=== PATIENT | female | born 1985 | race Caucasian/White ===

== ENCOUNTER 2016-07-12 12:04 | Emergency (ER) | payer OTHER ==
[2016-07-12] MEDS ORDERED: Benzonatate 100 MG CAP ONE (13:13)
[2016-07-12] MEDS ORDERED: predniSONE 20 MG TAB ONE (13:13)
[2016-07-12] MEDS ORDERED: Cephalexin 500 MG CAP ONE (13:13)
--- NOTE | 2016-07-12 13:43 | PICIS ---
[facility] EMERGENCY RECORD TRIAGE (MonJul 12, 2016 12:17 SFRE) PATIENT: NAME: Danna Phan, AGE: 30, GENDER: female, : Mon1985, TIME OF GREET: MonJul 12, 2016 12:04, PREFERRED LANGUAGE: Dominican, RACE: WHITE, ETHNICITY: Not or , FALL RISK: NO, ECODE BILLING MAP: [facility], SSN: [id number], Zip Code: [address], KG WEIGHT: 73.48, PHONE: CELL, , , PERSON ID: [id number], PCP: NO PCP. (MonJul 12, 2016 12:17 SFRE) TRIAGE NOTES: CONGESTION, COUGH, FRONTAL PRESSURE BEHIND EYES. (MonJul 12, 2016 12:17 SFRE) COMPLAINT: FLU LIKE SYM. (MonJul 12, 2016 12:17 SFRE) ADMISSION: URGENCY: 3 Urgent, ADMISSION SOURCE: Home, TRANSPORT: Walk-in, BED: TRIAGE. (MonJul 12, 2016 12:17 SFRE) PAIN: Notes: PLEURETIC WITH COUGH. (MonJul 12, 2016 12:17 SFRE) IMMUNIZATIONS: Tetanus immunization up to date. (MonJul 12, 2016 12:17 SFRE) TRIAGE SCREENING: Patient denies suicidal ideation, Patient denies presence of domestic violence. (MonJul 12, 2016 12:17 SFRE) PROVIDERS: TRIAGE NURSE: Debbie Mcdermott RN. (MonJul 12, 2016 12:17 SFRE) VITAL SIGNS: BP 137/83, Pulse 86, Resp 20, Temp 98.6, (Tympanic), Pain 0, O2 Sat 100, on Room Air, Time 07/12/2016 12:14. (12:14 SFRE) PREVIOUS VISIT ALLERGIES: bee venom (honey bee), Coconut, No Known Drug Allergies. (MonJul 12, 2016 12:17 SFRE) KNOWN ALLERGIES bee venom (honey bee) Coconut: Reaction: SWELLING No Known Drug Allergies (Unconfirmed) venom-honey bee (Unconfirmed) CURRENT MEDICATIONS No recorded medications VITAL SIGNS (12:14 SFRE) VITAL SIGNS: BP: 137/83, Pulse: 86, Resp: 20, Temp: 98.6 (Tympanic), Pain: 0, O2 sat: 100 on Room Air, Time: 07/12/2016 12:14. NURSING ASSESSMENT: RESPIRATORY /CHEST (12:17 MDEB) CONSTITUTIONAL: Patient arrives ambulatory, Gait steady, History obtained from patient, Patient appears, anxious, generally ill, uncomfortable, Patient cooperative, Patient alert, Oriented to person, place and time, Skin warm, Skin dry, Skin normal in color, Mucous membranes pink, Mucous membranes moist, Patient is well-groomed, Patient complains of COUGH, SINUS PRESSURE, CONGESTION. PAIN: PLEURETIC PAIN ONLY WITH COUGH, PAIN TO RIBS ET STOAMCH MUSCLES. &a-1R&a+25V*p+0X*b2035W*c202B*c15G*c2P*p-0X&a-25V&a+1R Name: Danna Phan : 1985 F30 MedRec: [id number] AcctNum: [id number] Prepared: Sondra Jul 12, 2016 13:58 by Interface Page 1 of 7 pMD [facility] EMERGENCY RECORD RESPIRATORY/CHEST: Breath sounds clear, Respiratory assessment findings include respiratory effort easy, Respirations regular, Conversing normally, Neck and chest exam findings include trachea midline, Chest expansion equal, Chest movement symmetrical, Associated with cough, dry. ENT: Ear assessment findings include ear normal to inspection, Congestion, bilaterally, Mouth and throat assessment findings include mouth inspection normal, Mucous membranes pink, and moist, Able to swallow, Speech normal, Associated with headache, FRONTAL PRESSURE. NOTES: Emotional support needed and given, Patient tolerated procedure well. SAFETY: Side rails up, Cart/Stretcher in lowest position, Family at bedside, Call light within reach, Hospital ID band on. NURSING PROCEDURE: DISCHARGE NOTE (13:20 MDEB) DISCHARGE: Patient discharged to home, ambulating without assistance, driving self, unaccompanied, Summary of Care printed/ provided, Patient requested and was provided an electronic copy of Discharge Instructions, Transition record given to patient, Discharge instructions given to patient, Prescriptions given and instructions on side effects given, Above person(s) verbalized understanding of discharge instructions and follow-up care, Patient treated and evaluated by physician. BELONGINGS: Belongings remain with patient, Valuables remain with patient. NOTES: Emotional support needed and given, Patient tolerated procedure well. MEDICATION ADMINISTRATION SUMMARY Drug Name: amoxicillin, Dose Ordered: 500 mg, Route: Oral, Status: Given, Time: 13:24 07/12/2016, Drug Name: Marcia Degroot, Dose Ordered: 200 mg, Route: Oral, Status: Given, Time: 13:20 07/12/2016, Drug Name: predniSONE oral, Dose Ordered: 60 mg, Route: Oral, Status: Given, Time: 13:20 07/12/2016, Detailed record available in Medication Service section. MEDICATION SERVICE amoxicillin: Order: amoxicillin (amoxicillin trihydrate) - Dose: 500 mg : Oral Schedule: Now Ordered by: Catracho Reynoso MD Entered by: Catracho Reynoso MD MonJul 12, 2016 13:04 , Acknowledged by: Jessica Whitfield RN Jul 12, 2016 13:11 Documented as given by: Jessiac Whitfield RN Jul 12, 2016 13:24 Patient, Medication, Dose, Route and Time verified prior to administration. Amount given: 500 MG, Site: Medication administered P.O., Correct &a-1R&a+25V*p+0X*c4315K*c202B*c15G*c2P*p-0X&a-25V&a+1R Name: Danna Phan : 1985 F30 MedRec: [id number] AcctNum: [id number] Prepared: MonJul 12, 2016 13:58 by Interface Page 2 of 7 pMD [facility] EMERGENCY RECORD patient, time, route, dose and medication confirmed prior to administration, Patient advised of actions and side-effects prior to administration, Allergies confirmed and medications reviewed prior to administration, Patient in position of comfort, Side rails up, Cart in lowest position, Family at bedside. predniSONE oral: Order: predniSONE oral (prednisone) - Dose: 60 mg : Oral Schedule: Now Ordered by: Catracho Reynoso MD Entered by: Catracho Reynoso MD MonJul 12, 2016 13:05 , Acknowledged by: Jessica Whitfield RN Jul 12, 2016 13:11 Documented as given by: Jessica Whitfield RN Jul 12, 2016 13:20 Patient, Medication, Dose, Route and Time verified prior to administration. Amount given: 60 MG, Site: Medication administered P.O., Correct patient, time, route, dose and medication confirmed prior to administration, Patient advised of actions and side-effects prior to administration, Allergies confirmed and medications reviewed prior to administration, Patient in position of comfort, Side rails up, Cart in lowest position, Family at bedside. Tessalon Perles: Order: Tessalon Perles (benzonatate) - Dose: 200 mg : Oral Schedule: Now Ordered by: Catracho Reynoso MD Entered by: Catracho Reynoso MD MonJul 12, 2016 13:04 , Acknowledged by: Jessica Whitfield RN MonJul 12, 2016 13:11 Documented as given by: Jessica Whitfield RN MonJul 12, 2016 13:20 Patient, Medication, Dose, Route and Time verified prior to administration. Amount given: 200 MG, Site: Medication administered P.O., Correct patient, time, route, dose and medication confirmed prior to administration, Patient advised of actions and side-effects prior to administration, Allergies confirmed and medications reviewed prior to administration, Patient in position of comfort, Side rails up, Cart in lowest position, Family at bedside. HPI COUGH (13:25 LLDO) CHIEF COMPLAINT: Patient presents for evaluation of cough, productive of yellow sputum. HISTORIAN: History provided by patient, History provided by patient's family, MOM. LOCATION: Symptoms are generalized. QUALITY: Denies tightness, Denies wheezing, Pain is dull in nature, described as aching. SEVERITY: Maximum severity of symptoms moderate, Currently symptoms are moderate. TIME COURSE: Gradual onset of symptoms, Symptoms are worsening, are constant. ASSOCIATED WITH: Associated symptoms reviewed, Associated with dyspnea on exertion, Associated with fever, Associated with upper respiratory infection, No associated wheezing, Associated &a-1R&a+25V*p+0X*h0135Y*c202B*c15G*c2P*p-0X&a-25V&a+1R Name: Danna Phan : 1985 F30 MedRec: [id number] AcctNum: [id number] Prepared: MonJul 12, 2016 13:58 by Interface Page 3 of 7 pMD [facility] EMERGENCY RECORD with weakness. EXACERBATED BY: Patient's condition exacerbated by deep breaths, Patient's condition exacerbated by exercise, Patient's condition exacerbated by lying flat. RELIEVED BY: Patient's condition relieved by nothing, Patient's condition relieved by rest. ROS CONSTITUTIONAL: Historian reports fatigue, reports fever, reports malaise. (13:35 LLDO) EYES: Negative eye review of systems, Historian denies eye pain, denies eye redness, denies eye discharge. (13:47 LLDO) ENT: Historian reports sinus pain, reports sore throat. (13:35 LLDO) CARDIOVASCULAR: Historian reports dyspnea on exertion. (13:35 LLDO) RESPIRATORY: Historian reports cough, reports sputum. described as thick, green, Historian denies wheezing, yellow. (13:35 LLDO) GI: Negative gastrointestinal review of systems, Historian denies abdominal pain, denies constipation, denies diarrhea, denies nausea, denies vomiting. (13:47 LLDO) GENITOURINARY FEMALE: Negative genitourinary review of systems, Historian denies dysuria, denies frequency, denies urgency. (13:47 LLDO) MUSCULOSKELETAL: Historian reports myalgias. (13:35 LLDO) SKIN: Negative skin review of systems, Historian denies cellulitis, denies rash, denies skin changes, denies skin lesions. (13:47 LLDO) NEUROLOGIC: Historian denies confusion, denies dizziness, denies dysphasia, denies focal weakness, denies gait changes, reports headache, denies irritability, denies lethargy, denies mental status changes. (13:35 LLDO) HEMO/LYMPHATIC: Normal hematologic/lymphatic system review, Historian denies abnormal blood clotting, denies gum bleeding, denies petechiae. (13:47 LLDO) ALLERGIC/IMMUNOLOGIC: Normal allergy/immunologic system review, Historian denies eczema, denies environmental allergies, denies food allergies. (13:47 LLDO) PSYCHIATRIC: Negative psychiatric review of systems, Historian denies alcohol abuse, denies anxiety, denies depression, denies drug abuse, denies hallucinations. (13:47 LLDO) NOTES: All systems reviewed, negative except as described above. (13:35 LLDO) PAST MEDICAL HISTORY MEDICAL HISTORY: Flu vaccine up to date, Tetanus immunization up to date, Past medical history includes endocrine disease, hypothyroidism, Past medical history includes history of hypertension. (MonJul 12, 2016 12:17 SFRE) &a-1R&a+25V*p+0X*b6021O*c202B*c15G*c2P*p-0X&a-25V&a+1R Name: Danna Phan : 1985 F30 MedRec: [id number] AcctNum: [id number] Prepared: MonJul 12, 2016 13:58 by Interface Page 4 of 7 pMD [facility] EMERGENCY RECORD FEMALE SURGICAL HISTORY: Patient's surgical history is not relevant to the management of the case. (MonJul 12, 2016 12:17 SFRE) PSYCHIATRIC HISTORY: Psychiatric history includes, anxiety, depression. (MonJul 12, 2016 12:17 SFRE) SOCIAL HISTORY: Patient currently uses tobacco, smokes cigarettes, daily, Patient smokes 1 pack per day, Patient currently uses tobacco, smokes cigarettes, daily, Patient smokes 1 pack per day, Patient denies alcohol use, Patient denies drug use, Patient currently uses tobacco. (MonJul 12, 2016 12:17 SFRE) FAMILY HISTORY: Notes: Father had MT at age 27, Paternal history of cardiac disease:, myocardial infarction. (MonJul 12, 2016 12:17 SFRE) NOTES: Nursing records reviewed, Agree with nursing records, Medication list reviewed. (13:46 LLDO) PHYSICAL EXAM CONSTITUTIONAL: Vital Signs Reviewed, Patient afebrile, Pulse normal, Blood pressure normal, Respiratory rate normal, Normal pulse oximetry, Patient appears, uncomfortable, Patient appears, in mild pain distress, Patient alert and oriented to person, place and time, Nursing notes reviewed. (13:39 LLDO) HEAD: Head exam normal, Head exam included findings of head atraumatic, normocephalic. (13:47 LLDO) EYES: Eye exam normal, Eye exam included findings of eyelids normal to inspection, Pupils equally round and reactive to light, Extraocular muscles intact. (13:47 LLDO) ENT: Pharynx, injected bilaterally, with swelling bilaterally, Uvula exam normal, Sinus exam included findings of frontal sinuses with, tenderness bilaterally, Maxillary sinuses with, tenderness bilaterally. (13:39 LLDO) NECK: Neck exam normal, Neck exam included findings of normal range of motion, Trachea midline, no meningeal signs, no tenderness. (13:47 LLDO) RESPIRATORY CHEST: Respiratory exam included findings of no respiratory distress, No wheezing, Rales present, Chest exam included findings of chest movement symmetrical, Chest expansion equal, RALES MOD AND SCATTERED. (13:39 LLDO) CARDIOVASCULAR: Cardiovascular assessment normal, Cardiovascular exam included findings of heart rate regular rate and rhythm, Heart sounds normal. (13:47 LLDO) ABDOMEN FEMALE: Abdominal exam normal, Abdominal exam included findings of abdomen nontender, Bowel sounds normal, no peritoneal signs. (13:47 LLDO) BACK: Back exam normal, Back exam included findings of normal inspection, range of motion normal. (13:47 LLDO) UPPER EXTREMITY: Upper extremity exam normal, Upper extremity &a-1R&a+25V*p+0X*f6005H*c202B*c15G*c2P*p-0X&a-25V&a+1R Name: Danna Phan : 1985 F30 MedRec: [id number] AcctNum: [id number] Prepared: MonJul 12, 2016 13:58 by Interface Page 5 of 7 pMD [facility] EMERGENCY RECORD exam included findings of inspection normal, Range of motion normal. (13:47 LLDO) LOWER EXTREMITY: Lower extremity exam normal, Lower extremity exam included findings of inspection normal, Range of motion normal. (13:47 LLDO) NEURO: Neuro exam normal, Neuro exam findings include patient oriented to person, place and time, Speech normal, Sharon coma scale 15. (13:47 LLDO) SKIN: Skin exam normal, Skin exam included findings of skin warm, dry, and normal in color, no rash. (13:47 LLDO) PSYCHIATRIC: Psychiatric exam normal, Psychiatric exam included findings of patient oriented to person place and time, Normal affect. (13:47 LLDO) EVENTS TRANSFER: Triage to Emergency Triage. (MonJul 12, 2016 12:17 SFRE) Emergency Triage to Main ED -03. (12:17 SFRE) Removed from Emergency Main ED -03. (13:30 MDEB) PROBLEM LIST No recorded problems DIAGNOSIS (13:06 LLDO) FINAL: PRIMARY: Acute bronchitis. DISPOSITION PATIENT: Disposition Type: Discharge, Disposition: *Discharge Home. (13:06 LLDO) Patient left the department. (13:30 JENIFER) INSTRUCTION (13:08 DO) DISCHARGE: BRONCHITIS, ABX TX (ADULT). FOLLOWUP: Follow up with Primary Care Physician in 7-10 days. SPECIAL: Follow-up with your PCP. PRESCRIPTION (13:07 DO) amoxicillin: CAPSULE (HARD, SOFT, ETC.) : 500 mg : ORAL : Quantity: 1 Unit: cap(s) Route: ORAL Schedule: 3 times a day Dispense: 30 May substitute. Refills: No Refills . NOTES: No Refills. Phenergan DM: SYRUP : : ORAL : Quantity: 1-2 Unit: teaspoon Route: ORAL Schedule: every 4 hours prn Dispense: 180 Unit: mL May substitute. Refills: No Refills . NOTES: ^s=No Refills No Refills. predniSONE oral: TABLET : 20 mg : ORAL : Quantity: * Unit: Route: ORAL Schedule: See Notes Dispense: 2O &a-1R&a+25V*p+0X*d9582R*c202B*c15G*c2P*p-0X&a-25V&a+1R Name: Danna Phan : 1985 F30 MedRec: [id number] AcctNum: [id number] Prepared: Sondra Jul 12, 2016 13:58 by Interface Page 6 of 7 pMD [facility] EMERGENCY RECORD May substitute. Refills: No Refills . NOTES: 3 TABS PER DAY FOR 3 DAYS, THEN 2 TABS PER DAY FOR 3 DAYS, THEN ONE TAB PER DAY UNTIL GONE No Refills. Ultram: TABLET : 50 mg : ORAL : Quantity: 1-2 Unit: tab(s) Route: ORAL Schedule: every 4 hours prn Dispense: 24 May substitute. Refills: No Refills . NOTES: No Refills. IMAGING (13:26 [facility]) *DISCHARGE INSTRUCTIONS RECEIPT: Image captured from scanner. *SUPPLY CHARGE SHEET: Image captured from scanner. ADMIN (13:48 LLDO) DIGITAL SIGNATURE: MD Angeles, Catracho. Montes De Oca: SILVIA=MD Reynoso Lloyd MDEB=MOOK Whitfield, Jessica RIDLEYE=MOOK Mcdermott, Debbie &a-1R&a+25V*p+0X*b4283C*c202B*c15G*c2P*p-0X&a-25V&a+1R Name: Danna Phan : 1985 F30 MedRec: [id number] AcctNum: [id number] Prepared: MonJul 12, 2016 13:58 by Interface Page 7 of 7 pMD [facility] MEDICATION RECONCILIATION You were seen in the Emergency Department on: MonJul 12, 2016 KNOWN ALLERGIES bee venom (honey bee) Coconut: Reaction: SWELLING No Known Drug Allergies (Unconfirmed) venom-honey bee (Unconfirmed) MEDICATIONS GIVEN WHILE IN THE EMERGENCY DEPARTMENT amoxicillin (amoxicillin trihydrate) - Dose: 500 milligram(s) : Oral Tessalon Perles (benzonatate) - Dose: 200 milligram(s) : Oral predniSONE oral (prednisone) - Dose: 60 milligram(s) : Oral Notes from the emergency department Reviewed with family Reviewed with patient PRESCRIPTIONS (4) Printed (4) amoxicillin : CAPSULE (HARD, SOFT, ETC.) : 500 mg : ORAL Quantity: 1, Unit: cap(s), Route: ORAL, Schedule: 3 times a day, Dispense: 30 Phenergan DM : SYRUP : : ORAL Quantity: 1-2, Unit: teaspoon, Route: ORAL, Schedule: every 4 hours prn, Dispense: 180 Unit: milliliter(s) predniSONE oral : TABLET : 20 mg : ORAL Quantity: *, Unit: *, Route: ORAL, Schedule: See Notes, Dispense: 2O &a-1R&a+25V*p+0X*w0437M*c202B*c15G*c2P*p-0X&a-25V&a+1R Name: Danna Phan : 1985 F30 MedRec: [id number] AcctNum: [id number] Prepared: MonJul 12, 2016 13:58 by Interface pMEmily JOHNSON
== END 2016-07-12 13:20 | disposition home or self-care (01) ==
LOC: MADERS 12:04
DX: J20.9 Acute bronchitis, unspecified (principal); I10 Essential (primary) hypertension; E03.9 Hypothyroidism, unspecified; F32.9 Major depressive disorder, single episode, unspecified; F41.9 Anxiety disorder, unspecified; F17.210 Nicotine dependence, cigarettes, uncomplicated
CPT/HCPCS: 99283; J7506

== ENCOUNTER 2016-10-04 18:03 | Emergency (ER) | payer MEDICAID, OTHER, SELFPAY ==
[2016-10-04] MEDS ORDERED: Azithromycin 250 MG TAB ONE (18:31)
[2016-10-04] MEDS ORDERED: predniSONE 20 MG TAB ONE (18:31)
== END 2016-10-04 18:35 | disposition home or self-care (01) ==
LOC: MADERS 18:03
DX: J40 Bronchitis, not specified as acute or chronic (principal); E03.9 Hypothyroidism, unspecified; I10 Essential (primary) hypertension; F41.9 Anxiety disorder, unspecified; F32.9 Major depressive disorder, single episode, unspecified; F17.210 Nicotine dependence, cigarettes, uncomplicated
CPT/HCPCS: 99283; J7506

== ENCOUNTER 2017-03-29 13:32 | Emergency (ER) | payer MEDICAID ==
[2017-03-29 15:01] LABS: Bilirubin Negative (Negative); Blood, Urine Negative (Negative); Glucose, Urine (Dipstick) Negative (Negative); Leukocyte Negative (Negative); Nitrite Negative (Negative); Protein, Urine (Dipstick) Negative (Neg-Trace); Urobilinogen 0.2 mg/dL (0.2-1.0)
[2017-03-29 15:07] LABS: Pregnancy Test - Urine (BHCG) Negative (Negative); Pregu Control Background? CLEAR/WHITE (CLR/WHITE); Pregu Control Bar Appear? YES (CONTROL BAR)
[2017-03-29 15:15] LABS: Clarity Slightly Cloudy (Clear)
== END 2017-03-29 15:45 | disposition home or self-care (01) ==
LOC: MADERS 13:32
DX: I10 Essential (primary) hypertension (principal); B34.9 Viral infection, unspecified; E03.9 Hypothyroidism, unspecified; F41.9 Anxiety disorder, unspecified; F32.9 Major depressive disorder, single episode, unspecified; F17.210 Nicotine dependence, cigarettes, uncomplicated; Z79.899 Other long term (current) drug therapy
CPT/HCPCS: 36416; 81003; 81025; 99283

== ENCOUNTER 2017-04-13 19:54 | Emergency (ER) | payer MEDICAID, SELFPAY ==
[2017-04-13] MEDS ORDERED: Ondansetron ODT 4 MG TAB ONE (20:18)
--- NOTE | 2017-04-13 20:49 | CT ---
NONCONTRAST CT OF THE BRAIN 04/13/17 INDICATION: Wooden beam fell on top of head 30 minutes ago with no loss of consciousness but with head pain. COMPARISON: None. FINDINGS: Septum pellucidum and third ventricle are midline. No acute infarct, hemorrhage or hydrocephalus is present. The skull and extracranial soft tissues are within normal limits. IMPRESSION: No acute intracranial abnormality. POS: [facility]
[2017-04-13] MEDS ORDERED: diphenhydrAMINE 25 MG CAP ONE (20:51)
[2017-04-13] MEDS ORDERED: HYDROcodone/Acetaminophen 5/325 mg Tablet ONE (20:51)
[2017-04-13] MEDS ORDERED: Metoclopramide HCl 10 MG TAB ONE (20:51)
== END 2017-04-13 21:02 | disposition home or self-care (01) ==
LOC: MADERS 19:54
DX: S00.03XA Contusion of scalp, initial encounter (principal); E03.9 Hypothyroidism, unspecified; I10 Essential (primary) hypertension; F41.9 Anxiety disorder, unspecified; F32.9 Major depressive disorder, single episode, unspecified; F17.210 Nicotine dependence, cigarettes, uncomplicated; Z79.899 Other long term (current) drug therapy; W22.8XXA Striking against or struck by other objects, initial encounter; Y92.009 Unspecified place in unspecified non-institutional (private) residence as the place of occurrence of the external cause
CPT/HCPCS: 70450; Q0162

== ENCOUNTER 2017-07-02 11:55 | Emergency (ER) | payer MEDICAID ==
[2017-07-02] MEDS ORDERED: Phenergan/Codeine 10-6.25mg/5ml UDCUP ONE (13:17)
[2017-07-02] MEDS ORDERED: AMOXicillin 250 MG CAP ONE (13:17)
[2017-07-02] MEDS ORDERED: Tobramycin Sulfate 0.3% Ophth Susp 5 ml Bottle ONE (13:17)
== END 2017-07-02 13:35 | disposition home or self-care (01) ==
LOC: MADERS 11:55
DX: H10.9 Unspecified conjunctivitis (principal); J20.9 Acute bronchitis, unspecified; E03.9 Hypothyroidism, unspecified; I10 Essential (primary) hypertension; F41.9 Anxiety disorder, unspecified; F32.9 Major depressive disorder, single episode, unspecified; F17.210 Nicotine dependence, cigarettes, uncomplicated; Z79.899 Other long term (current) drug therapy
CPT/HCPCS: 99283

== ENCOUNTER 2017-07-22 19:06 | Emergency (ER) | payer MEDICAID | END 2017-07-22 20:30 | disposition left against medical advice (07) | LOC: MADERS 19:06 | DX: Z53.21 Procedure and treatment not carried out due to patient leaving prior to being seen by health care provider (principal) ==

== ENCOUNTER 2019-02-05 09:09 | Emergency (ER) | payer OTHER, SELFPAY ==
[2019-02-05] MEDS ORDERED: Lidocaine 1% w/Epinephrine 1:100K 20 ML VIAL ONE (09:24)
[2019-02-05] MEDS ORDERED: Rabies Vaccine Human 2.5 UNITS VIAL ONE (09:47)
[2019-02-05] MEDS ORDERED: Adacel (T-DAP) 0.5 ML SYRINGE ONE (09:54)
== END 2019-02-05 10:05 | disposition home or self-care (01) ==
LOC: MADERS 09:09
DX: L02.01 Cutaneous abscess of face (principal); E03.9 Hypothyroidism, unspecified; I10 Essential (primary) hypertension; F41.9 Anxiety disorder, unspecified; F32.9 Major depressive disorder, single episode, unspecified; F17.210 Nicotine dependence, cigarettes, uncomplicated; Z79.899 Other long term (current) drug therapy
CPT/HCPCS: 10060; 90471; 90675; 90715; J2001

== ENCOUNTER 2019-06-14 13:58 | Emergency (ER) | payer MEDICAID, SELFPAY ==
--- NOTE | 2019-06-14 15:20 | RAD ---
XR Ankle Rt 3 View STANDARD HISTORY: Injury, right ankle pain FINDINGS: No fracture or dislocation is identified. The ankle mortise is maintained.
[2019-06-14] MEDS ORDERED: Ibuprofen 800 MG TAB ONE (16:01)
[2019-06-14] MEDS ORDERED: traMADol HCl 50 MG TAB ONE (16:01)
== END 2019-06-14 16:13 | disposition home or self-care (01) ==
LOC: MADERS 13:58
DX: S93.491A Sprain of other ligament of right ankle, initial encounter (principal); E03.9 Hypothyroidism, unspecified; I10 Essential (primary) hypertension; F41.9 Anxiety disorder, unspecified; F32.9 Major depressive disorder, single episode, unspecified; F17.210 Nicotine dependence, cigarettes, uncomplicated; W18.30XA Fall on same level, unspecified, initial encounter

== ENCOUNTER 2019-06-15 02:29 | Emergency (ER) | payer SELFPAY ==
[2019-06-15] MEDS ORDERED: Morphine 4 MG/ML VIAL ONE (02:49)
[2019-06-15 03:36] LABS: #Basophils 0.1 thou/uL (0.0-0.2); #Eosinphils 0.3 thou/uL (0.0-0.7); #Lymphocytes 3.6 thou/uL (1.20-3.40); #Monocytes 0.6 thou/uL (0.11-0.59); %Eosinophils 2.2 % (0.0-10.0); %Lymphocytes 28.4 % (21.0-51.0); %Monocytes 4.9 % (0.0-10.0); %Neutrophils 63.5 % (42.0-75.0); Hemoglobin 14.3 g/dL (12.0-16.0); Mean Corpuscular HGB CONC 31.3 g/dL (32.0-36.0); Mean Corpuscular Hemoglobin 28.3 pg (27.0-31.0); Mean Corpuscular Volume 90.5 fL (78.0-98.0); Mean Platelet Volume 7.7 fL (7.4-10.4); Platelet Count 232 thou/uL (130-400); RBC Distribution Width 12.6 % (11.5-14.5); Red Blood Cell (RBC) Count 5.07 mill/uL (4.20-5.40); White Blood Cell (WBC) Count 12.5 thou/uL (4.8-10.8)
[2019-06-15 03:52] LABS: ALT (SGPT) 14 U/L (8-55); AST (SGOT) 14 U/L (5-34); Albumin 4.1 g/dL (3.5-5.0); Alkaline Phosphatase 77 U/L (40-110); Anion Gap 17 mmol/L (10-20); BUN (Urea Nitrogen) 11 mg/dL (7.0-18.7); Bilirubin, Total 0.2 mg/dL (0.2-1.2); Calc. Creatinine Clearance 0 mL/min (70-130); Carbon Dioxide 25 mmol/L (22-29); Chloride 104 mmol/L (98-107); Estimated GFR-MDRD Greater than 90; Globulin 2.9 g/dL (2.4-3.5); Glucose 129 mg/dL (70-105); Potassium 3.7 mmol/L (3.5-5.1); Sodium 142 mmol/L (136-145)
[2019-06-15] MEDS ORDERED: Clindamycin/D5W 900 mg/50 ml Premix Bag ONE (04:04)
[2019-06-15] MEDS ORDERED: Sodium Chloride 0.9% 500 ML ONE (04:04)
[2019-06-15] MEDS ORDERED: Ketorolac Tromethamine 30 MG/ML VIAL ONE (05:11)
[2019-06-15] MEDS ORDERED: Acetaminophen 325 MG TAB ONE (05:11)
[2019-06-15] MEDS ORDERED: HYDROcodone/Acetaminophen 10/325 mg Tablet ONE (05:11)
--- NOTE | 2019-06-15 09:26 | CT ---
PRELIMINARY REPORT/[facility]/AFTER HOURS PROCEDURE CT RIGHT LOWER EXTREMITY WITH CONTRAST: HISTORY: PT c/o pain and swelling in leg and ankle after stepping in a hole early yesterday. Tissue in lower l eg, ankle, and foot and swollen, warm to touch, and painful w/palpitation. COMPARISON: None. TECHNIQUE: Contrast-enhanced CT of the right lower extremity. FINDINGS: No acute fracture or dislocation is identified. No soft tissue hematoma is seen. The vascular struc tures appear within normal limits. No significant cellulitis is seen. The subtalar joints appear wi thin normal limits. IMPRESSION: No acute fracture or dislocation. ELECTRONICALLY SIGNED BY: Eamon Hector MD Jun 15, 2019 4:35:11 AM VISUAL MANAGER This report is intended for review by the ordering physician only, in accordance of law. If you recei ve this report in error, please call [facility] at [phone]. FINAL REPORT CT RIGHT LOWER EXTREMITY WITH IV CONTRAST: I agree with the preliminary report given by Dr. Eamon Hector of [facility]. CODE QA POS: [facility]
[2019-06-15] MEDS ORDERED: Iopamidol 370 76% 100 ML VIAL ONE (10:21)
--- NOTE | 2019-06-15 10:25 | RAD ---
RIGHT FOOT THREE VIEWS: HISTORY: Injury. Right foot pain. FINDINGS: No acute fracture or dislocation is identified. POS: [facility]
== END 2019-06-15 05:25 | disposition home or self-care (01) ==
LOC: MADERS 02:29
DX: S93.601A Unspecified sprain of right foot, initial encounter (principal); L03.115 Cellulitis of right lower limb; F41.9 Anxiety disorder, unspecified; F32.9 Major depressive disorder, single episode, unspecified; I10 Essential (primary) hypertension; E03.9 Hypothyroidism, unspecified; Z79.891 Long term (current) use of opiate analgesic; Z79.899 Other long term (current) drug therapy; X58.XXXA Exposure to other specified factors, initial encounter
CPT/HCPCS: 80053; 83605; 85025; 96365; 96372; 96375; J1885; J2270; J3490; J7050; Q9967

== ENCOUNTER 2019-07-30 18:06 | Emergency (ER) | payer OTHER, SELFPAY ==
--- NOTE | 2019-07-30 19:04 | RAD ---
RIGHT ANKLE THREE VIEWS: 07/30/19 HISTORY: Injury to ankle. There is soft tissue swelling adjacent to the lateral malleolus. There is no signs of fracture. Small calcaneal spur is present. IMPRESSION: No evidence of fracture. POS: [facility]
== END 2019-07-30 19:01 | disposition home or self-care (01) ==
LOC: MADERS 18:06
DX: S93.491A Sprain of other ligament of right ankle, initial encounter (principal); E03.9 Hypothyroidism, unspecified; I10 Essential (primary) hypertension; F41.9 Anxiety disorder, unspecified; F32.9 Major depressive disorder, single episode, unspecified; F17.210 Nicotine dependence, cigarettes, uncomplicated; Z79.899 Other long term (current) drug therapy; X50.1XXA Overexertion from prolonged static or awkward postures, initial encounter

== ENCOUNTER 2020-03-01 12:28 | Emergency (ER) | payer OTHER, SELFPAY ==
[2020-03-01] MEDS ORDERED: Sodium Chloride 0.9% 1,000 ML ONE (13:13)
[2020-03-01 13:33] LABS: #Basophils 0.2 thou/uL (0.0-0.2); #Eosinphils 0.3 thou/uL (0.0-0.7); #Lymphocytes 3.3 thou/uL (1.20-3.40); #Monocytes 0.5 thou/uL (0.11-0.59); #Neutrophils 9.6 thou/uL (1.40-6.50); %Basophils 1.1 % (0.0-1.0); %Eosinophils 2.3 % (0.0-10.0); %Lymphocytes 23.8 % (21.0-51.0); %Monocytes 3.5 % (0.0-10.0); %Neutrophils 69.3 % (42.0-75.0); Hemoglobin 15.6 g/dL (12.0-16.0); Mean Corpuscular HGB CONC 33.4 g/dL (32.0-36.0); Mean Corpuscular Hemoglobin 29.3 pg (27.0-31.0); Mean Corpuscular Volume 87.8 fL (78.0-98.0); Mean Platelet Volume 7.7 fL (7.4-10.4); Platelet Count 289 thou/uL (130-400); RBC Distribution Width 11.9 % (11.5-14.5); Red Blood Cell (RBC) Count 5.32 mill/uL (4.20-5.40); White Blood Cell (WBC) Count 13.9 thou/uL (4.8-10.8)
[2020-03-01 13:40] LABS: Bilirubin Negative (Negative); Blood, Urine Negative (Negative); Clarity Slightly Cloudy (Clear); Glucose, Urine (Dipstick) Negative (Negative); Ketone, Urine Negative (Negative); Leukocyte Trace (Negative); Nitrite Negative (Negative); Protein, Urine (Dipstick) 100 mg/dL (Neg-Trace); Urobilinogen 0.2 mg/dL (Less than 2)
[2020-03-01 13:48] LABS: ALT (SGPT) 17 U/L (8-55); AST (SGOT) 17 U/L (5-34); Acetaminophen Less than 6.0 mcg/mL (10.0-30.0); Albumin 4.6 g/dL (3.5-5.0); Alcohol Less than 10 mg/dL (Less than 10); Alkaline Phosphatase 65 U/L (40-110); Anion Gap 17 mmol/L (10-20); BUN (Urea Nitrogen) 9 mg/dL (7.0-18.7); Bilirubin, Total 0.2 mg/dL (0.2-1.2); CK (CPK) 101 U/L (29-168); Calc. Creatinine Clearance 0 mL/min (70-130); Calcium 9.3 mg/dL (7.8-10.44); Carbon Dioxide 23 mmol/L (22-29); Chloride 101 mmol/L (98-107); Estimated GFR-MDRD 81; Globulin 3.5 g/dL (2.4-3.5); Glucose 117 mg/dL (70-105); Potassium 3.8 mmol/L (3.5-5.1); Protein, Total 8.1 g/dL (6.0-8.3); Salicylate Less than 8.0 mg/dL (15.0-30.0); Sodium 137 mmol/L (136-145)
[2020-03-01 13:50] LABS: Amphetamine Detected (NotDetected); Barbiturates Screen Not Detected (NotDetected); Benzodiazepine Screen Not Detected (NotDetected); Cocaine Metabolite Screen Not Detected (NotDetected); Medtox Control Line Valid? VALID (VALID); Methadone Not Detected (NotDetected); Methamphetamine Detected (NotDetected); Opiate Screen Not Detected (NotDetected); Oxycodone Screen Not Detected (NotDetected); Phencyclidine (PCP) Not Detected (NotDetected); THC/Cannabinoid Screen Detected (NotDetected); Tricyclic Screen Not Detected (NotDetected)
[2020-03-01 13:51] LABS: Specific Gravity, Urine 1.028 (1.002-1.036)
[2020-03-01 13:52] LABS: Bacteria/HPF 2+ HPF (None Seen); RBC/HPF 0-3 HPF (0-3)
[2020-03-01 13:53] LABS: BHCG - Serum Negative (NEGATIVE); Pregs Control Background? CLEAR/WHITE (CLR/WHITE); Pregs Control Bar Appear? YES (CONTROL BAR)
--- NOTE | 2020-03-01 14:09 | RAD ---
EXAM: Two views chest PROVIDED CLINICAL HISTORY: Elevated white blood cell count. COMPARISON: 12/21/2013 FINDINGS: Cardiac silhouette and pulmonary vasculature are within normal limits. The lungs are clear. The osse ous structures have a normal appearance. No interval change from prior study. IMPRESSION: No acute cardiopulmonary process.
[2020-03-01] MEDS ORDERED: Sulfameth/Trimethoprim DS 800-160mg TAB ONE (14:56)
[2020-03-01 22:44] LABS: SARS-CoV-2 NAA Rapid Test Not Detected (NotDetected)
== END 2020-03-01 23:25 ==
LOC: MADERS 12:28
DX: F32.9 Major depressive disorder, single episode, unspecified (principal); Z20.828 Contact with and (suspected) exposure to other viral communicable diseases; N30.00 Acute cystitis without hematuria; F12.90 Cannabis use, unspecified, uncomplicated; F15.10 Other stimulant abuse, uncomplicated; E03.9 Hypothyroidism, unspecified; I10 Essential (primary) hypertension; F41.9 Anxiety disorder, unspecified; F17.210 Nicotine dependence, cigarettes, uncomplicated
CPT/HCPCS: 36415; 71046; 80053; 80306; 80307; 81003; 81015; 82550; 83605; 84443; 84484; 84703; 85025; 87086; 93005; 96360; J7050; U0002

== ENCOUNTER 2020-07-01 07:49 | Emergency (ER) | payer OTHER, SELFPAY ==
[2020-07-01 09:26] LABS: #Basophils 0.1 thou/uL (0.0-0.2); #Eosinphils 0.4 thou/uL (0.0-0.7); #Lymphocytes 1.5 thou/uL (1.20-3.40); #Monocytes 0.3 thou/uL (0.11-0.59); #Neutrophils 4.7 thou/uL (1.40-6.50); %Basophils 0.9 % (0.0-1.0); %Eosinophils 5.2 % (0.0-10.0); %Lymphocytes 21.3 % (21.0-51.0); %Monocytes 4.6 % (0.0-10.0); %Neutrophils 68.1 % (42.0-75.0); Bilirubin Negative (Negative); Blood, Urine Negative (Negative); Clarity Clear (Clear); Glucose, Urine (Dipstick) Negative (Negative); Hemoglobin 13.4 g/dL (12.0-16.0); Ketone, Urine Negative (Negative); Leukocyte Negative (Negative); Mean Corpuscular HGB CONC 32.6 g/dL (32.0-36.0); Mean Corpuscular Hemoglobin 27.3 pg (27.0-31.0); Mean Corpuscular Volume 83.8 fL (78.0-98.0); Mean Platelet Volume 6.3 fL (7.4-10.4); Nitrite Negative (Negative); Platelet Count 243 thou/uL (130-400); Protein, Urine (Dipstick) Negative (Neg-Trace); RBC Distribution Width 13.2 % (11.5-14.5); Red Blood Cell (RBC) Count 4.91 mill/uL (4.20-5.40); Urobilinogen 0.2 mg/dL (Less than 2); White Blood Cell (WBC) Count 6.8 thou/uL (4.8-10.8)
[2020-07-01] MEDS ORDERED: Ondansetron PF 4 MG/2 ML Vial ONE (09:27)
[2020-07-01] MEDS ORDERED: Ketorolac Tromethamine 30 MG/ML VIAL ONE (09:27)
[2020-07-01 09:36] LABS: BHCG - Serum Negative (NEGATIVE)
[2020-07-01 09:37] LABS: Pregs Control Background? CLEAR/WHITE (CLR/WHITE); Pregs Control Bar Appear? YES (CONTROL BAR)
[2020-07-01 09:52] LABS: Anion Gap 17 mmol/L (10-20); BUN (Urea Nitrogen) 9 mg/dL (7.0-18.7); Bilirubin, Total Less than 0.2 mg/dL (0.2-1.2); Calc. Creatinine Clearance 0 mL/min (70-130); Calcium 8.3 mg/dL (7.8-10.44); Carbon Dioxide 19 mmol/L (22-29); Chloride 105 mmol/L (98-107); Globulin 2.9 g/dL (2.4-3.5); Glucose 120 mg/dL (70-105); Potassium 4.4 mmol/L (3.5-5.1); Protein, Total 6.9 g/dL (6.0-8.3); Sodium 137 mmol/L (136-145)
[2020-07-01 09:53] LABS: ALT (SGPT) 15 U/L (8-55); AST (SGOT) 19 U/L (5-34); Alkaline Phosphatase 55 U/L (40-110); Lipase 8 U/L (8-78)
== END 2020-07-01 10:40 | disposition home or self-care (01) ==
LOC: MADERS 07:49
DX: R10.13 Epigastric pain (principal); R11.2 Nausea with vomiting, unspecified; E03.9 Hypothyroidism, unspecified; I10 Essential (primary) hypertension; F17.210 Nicotine dependence, cigarettes, uncomplicated; Z79.899 Other long term (current) drug therapy
CPT/HCPCS: 80053; 81003; 83690; 84703; 85025; 93005; 96374; 96375; J1885; J2405

== ENCOUNTER 2021-09-16 13:49 | Emergency (ER) | payer SELFPAY | END 2021-09-16 14:39 | disposition home or self-care (01) | LOC: MADERS 13:49 | DX: K02.9 Dental caries, unspecified (principal); E03.9 Hypothyroidism, unspecified; I10 Essential (primary) hypertension; F17.210 Nicotine dependence, cigarettes, uncomplicated | CPT/HCPCS: 99282 ==

== ENCOUNTER 2021-12-26 11:40 | Emergency (ER) | payer SELFPAY ==
[2021-12-26 12:08] LABS: #Basophils 0.1 thou/uL (0.0-0.2); #Eosinphils 0.4 thou/uL (0.0-0.7); #Lymphocytes 3.2 thou/uL (1.20-3.40); #Monocytes 0.5 thou/uL (0.11-0.59); #Neutrophils 8.2 thou/uL (1.40-6.50); %Eosinophils 2.9 % (0.0-10.0); %Lymphocytes 25.7 % (21.0-51.0); %Monocytes 4.2 % (0.0-10.0); %Neutrophils 66.2 % (42.0-75.0); Hemoglobin 15.5 g/dL (12.0-16.0); Mean Corpuscular HGB CONC 33.6 g/dL (32.0-36.0); Mean Corpuscular Hemoglobin 28.6 pg (27.0-31.0); Mean Corpuscular Volume 85.2 fL (78.0-98.0); Platelet Count 281 thou/uL (130-400); RBC Distribution Width 13.1 % (11.5-14.5); Red Blood Cell (RBC) Count 5.41 mill/uL (4.20-5.40); White Blood Cell (WBC) Count 12.4 thou/uL (4.8-10.8)
[2021-12-26] MEDS ORDERED: Aspirin Chewable 81 MG TAB ONE (12:11)
[2021-12-26] MEDS ORDERED: Sodium Chloride 0.9% 1,000 ML ONE (12:11)
[2021-12-26 12:18] LABS: BHCG - Serum Negative (NEGATIVE); Pregs Control Background? CLEAR/WHITE (CLR/WHITE); Pregs Control Bar Appear? YES (CONTROL BAR)
[2021-12-26 12:25] LABS: ALT (SGPT) 49 U/L (8-55); AST (SGOT) 39 U/L (5-34); Albumin 4.6 g/dL (3.5-5.0); Alkaline Phosphatase 82 U/L (40-110); Anion Gap 16 mmol/L (10-20); BUN (Urea Nitrogen) 4 mg/dL (7.0-18.7); Bilirubin, Total 0.2 mg/dL (0.2-1.2); Calc. Creatinine Clearance 0 mL/min (70-130); Calcium 9.8 mg/dL (7.8-10.44); Carbon Dioxide 28 mmol/L (22-29); Chloride 101 mmol/L (98-107); Estimated GFR 117; Globulin 3.5 g/dL (2.4-3.5); Glucose 112 mg/dL (70-105); Lipase 8 U/L (8-78); Potassium 4.2 mmol/L (3.5-5.1); Protein, Total 8.1 g/dL (6.0-8.3); Sodium 141 mmol/L (136-145)
[2021-12-26 12:37] LABS: Acetaminophen Less than 10.0 mcg/mL (10.0-30.0); Alcohol Less than 10 mg/dL (Less than 10); Salicylate Less than 8.0 mg/dL (15.0-30.0)
[2021-12-26 12:44] LABS: Amphetamine Not Detected (NotDetected); Barbiturates Screen Not Detected (NotDetected); Benzodiazepine Screen Not Detected (NotDetected); Cocaine Metabolite Screen Not Detected (NotDetected); Medtox Control Line Valid? VALID (VALID); Methadone Not Detected (NotDetected); Methamphetamine Not Detected (NotDetected); Opiate Screen Not Detected (NotDetected); Oxycodone Screen Not Detected (NotDetected); Phencyclidine (PCP) Not Detected (NotDetected); THC/Cannabinoid Screen Detected (NotDetected); Tricyclic Screen Not Detected (NotDetected)
[2021-12-26 15:01] LABS: Troponin I 0.015 ng/mL (< 0.028)
== END 2021-12-26 15:25 | disposition home or self-care (01) ==
LOC: MADERS 11:40
DX: R07.89 Other chest pain (principal); I10 Essential (primary) hypertension; E03.9 Hypothyroidism, unspecified; F17.210 Nicotine dependence, cigarettes, uncomplicated; E78.00 Pure hypercholesterolemia, unspecified
CPT/HCPCS: 36415; 71045; 80053; 80306; 80307; 83690; 83735; 84484; 84703; 85025; 93005; 96360; J7050

== ENCOUNTER 2022-03-07 14:48 | Emergency (ER) | payer SELFPAY ==
[2022-03-07] MEDS ORDERED: Ketorolac Tromethamine 30 MG/ML VIAL ONE (16:35)
[2022-03-07] MEDS ORDERED: Orphenadrine Citrate 60 MG/2 ML VIAL ONE (16:35)
== END 2022-03-07 16:57 | disposition home or self-care (01) ==
LOC: MADERS 14:48
DX: M54.50 Low back pain, unspecified (principal)
CPT/HCPCS: 72100; 72220; 96372; J1885; J2360

== ENCOUNTER 2022-11-25 20:42 | Emergency (ER) | payer SELFPAY ==
[2022-11-25] MEDS ORDERED: Ketorolac Tromethamine 30 MG/ML VIAL ONE (21:19)
[2022-11-25] MEDS ORDERED: Orphenadrine Citrate 60 MG/2 ML VIAL ONE (21:19)
== END 2022-11-25 22:05 | disposition home or self-care (01) ==
LOC: MADERS 20:42
DX: M54.31 Sciatica, right side (principal); E03.9 Hypothyroidism, unspecified; I10 Essential (primary) hypertension; F17.210 Nicotine dependence, cigarettes, uncomplicated; Z79.899 Other long term (current) drug therapy
CPT/HCPCS: 96372; 99283; J1885; J2360

== ENCOUNTER 2025-04-10 11:01 | Emergency (ER) | payer SELFPAY | END 2025-04-10 11:56 | disposition home or self-care (01) | LOC: MADERS 11:01 | DX: S83.92XA Sprain of unspecified site of left knee, initial encounter (principal); M25.462 Effusion, left knee; I10 Essential (primary) hypertension; F17.210 Nicotine dependence, cigarettes, uncomplicated; W01.10XA Fall on same level from slipping, tripping and stumbling with subsequent striking against unspecified object, initial encounter | CPT/HCPCS: 99283 ==